=== PATIENT | female | born 1970 | race Caucasian/White ===

== ENCOUNTER → 2016-08-11 | Outpatient (CLI) | payer BC ==
--- NOTE | 2016-08-12 09:51 | Diagnostic Imaging Report ---
Bilateral screening mammogram The current study was also evaluated with a Computer Aided Detection (CAD) system. Indication: Screening. No current complaints stated on the questionnaire. COMPARISON: 07/25/2015. Findings: The breasts are composed of extremely dense parenchyma which may decrease mammographic sensitivity. Scattered benign-appearing calcifications are seen. There are bilateral masses that appear larger compared to the prior study with well circumscribed margins. These are favored to be related to cysts. Benign-appearing calcifications are seen bilaterally. IMPRESSION: Interval enlargement of multiple circumscribed masses in the breasts bilaterally likely related to cysts. Confirmation with bilateral breast ultrasound is recommended. BI-RADS 0. ACR BI-RADS Category 0: Incomplete. (Needs additional imaging evaluation). Result letter will be mailed to the patient. Note: At least 10% of breast cancer is not imaged by mammography. Dictated by: Dictated on workstation # [id number]
== END ==
LOC: RAD 15:14
PROVIDERS: ATTEND Family Medicine
DX: Z12.31 Encounter for screening mammogram for malignant neoplasm of breast (principal)
CPT/HCPCS: 77067

== ENCOUNTER → 2016-09-01 | Outpatient (CLI) | payer BC ==
--- NOTE | 2016-09-01 18:04 | Diagnostic Imaging Report ---
Bilateral breast ultrasound. INDICATION: Bilateral breast masses. FINDINGS: There are multiple bilateral simple and minimally complicated cysts scattered in the breasts on both sides. There is a hypoechoic lesion measuring 1 x 0.7 x 1 cm at 01:30 o'clock position 5 cm from the nipple stable from 2013 exam may relate to a fibroadenoma. There is no suspicious solid mass seen in the four-quadrants or retroareolar region of either breast. At 6 o'clock zone in the right breast 3 cm from the nipple there is a 1 cm cystic lesion with mild internal debris. The largest cyst on the right side is at 9 o'clock zone measuring 3.3 cm. The largest on the left side is at the 1:30 o'clock position measuring 3.1 cm. IMPRESSION: Multiple bilateral simple and minimally complicated cysts. No suspicious solid mass is identified. ACR BI-RADS Category 2: Benign findings. Dictated by: Dictated on workstation # [id number]
== END ==
LOC: RAD 14:01
PROVIDERS: ATTEND Family Medicine
DX: N63 Unspecified lump in breast (principal)

== ENCOUNTER → 2017-08-19 | Outpatient (CLI) | payer BC, OTHER ==
--- NOTE | 2017-08-21 11:49 | Diagnostic Imaging Report ---
EXAMINATION: Digital mammogram INDICATION: Bilateral screening This study was compared to the prior exams of 08/11/2016, 07/10/15 and 03/28/2014. At this time there are no current complaints. The current study was also evaluated with a Computer Aided Detection (CAD) system. IMPRESSION: The fibroglandular tissue in both breasts is extremely dense. This does limit the sensitivity of this exam. As noted on the prior exam of 08/11/2016 there are multiple rounded densities in both breasts. The ultrasound exam performed on 09/01/2016 indicated multiple cysts. On this study the cyst do not appear to have changed adversely. Some of the larger cysts in the right breast noted previously are less conspicuous. The prior exam also noted numerous calcifications in both breasts. These calcifications do not appear to have changed significantly. There is no primary or secondary sign of malignancy noted. IMPRESSION: 1. There is no evidence of malignancy. 2. The patient should have her annual bilateral screening mammogram on schedule in July of 2018. ACR category one ACR BI-RADS Category 1: Negative. Result letter will be mailed to the patient. Note: At least 10% of breast cancer is not imaged by mammography. Dictated on workstation # [id number]
== END ==
LOC: RAD 15:18
PROVIDERS: ATTEND Family Medicine
DX: Z12.31 Encounter for screening mammogram for malignant neoplasm of breast (principal)
CPT/HCPCS: 77067

== ENCOUNTER → 2018-08-19 | Outpatient (CLI) | payer BC, OTHER ==
--- NOTE | 2018-08-20 16:26 | Diagnostic Imaging Report ---
INDICATION: Routine screening. COMPARISON: Prior mammogram from 08/19/2017 and 08/11/2016. EXAMINATION: 2D and 3D bilateral screening mammography was performed with CAD. The current study was also evaluated with a Computer Aided Detection (CAD) system. FINDINGS: Both breasts demonstrate marked parenchymal heterogeneity and increased density, limiting the sensitivity of mammography. Rounded masses throughout both breasts are again noted, consistent with cysts. There are innumerable calcifications throughout both breasts which appear similar to prior exam. No definite spiculated mass is seen. Axillae are unremarkable. IMPRESSION: No mammographic features suspicious for malignancy are identified. Dictated on workstation # [id number]
== END ==
LOC: RAD 15:28
PROVIDERS: ATTEND Family Medicine
DX: Z12.31 Encounter for screening mammogram for malignant neoplasm of breast (principal)
CPT/HCPCS: 77067

== ENCOUNTER → 2020-04-25 | Outpatient (CLI) | payer BC ==
--- NOTE | 2020-04-26 09:32 | Diagnostic Imaging Report ---
INDICATION: Routine screening. Comparison is made with prior mammogram 08/19/2018 and 08/19/2017. 2-D and 3-D bilateral screening mammography was performed with CAD. Both breasts are heterogeneously dense, limiting the sensitivity of mammography. Rounded masses in both breasts are again noted consistent with cysts. Numerous calcifications throughout both breasts persists. No definite malignant appearing microcalcifications are seen. Axillae are unremarkable. IMPRESSION: BI-RADS Category 2 No mammographic features suspicious for malignancy are identified. ACR BI-RADS Category 2: Benign findings. Result letter will be mailed to the patient. Note: At least 10% of breast cancer is not imaged by mammography. Dictated by: Dictated on workstation # [id number]
== END ==
LOC: RAD 15:30
PROVIDERS: ATTEND Family Medicine
DX: Z12.31 Encounter for screening mammogram for malignant neoplasm of breast (principal)
CPT/HCPCS: 77063; 77067

== ENCOUNTER → 2021-04-29 | Outpatient (CLI) | payer BC ==
--- NOTE | 2021-04-30 11:57 | Diagnostic Imaging Report ---
Indication: Routine screening. Comparison is made prior mammogram 04/25/2020 and 08/19/2018. 2-D and 3-D bilateral screening mammography was performed with CAD. Both breasts are heterogeneously dense, limiting the sensitivity of mammography. Numerous rounded masses throughout both breasts are again noted consistent with cysts. There are numerous benign calcifications throughout both breasts which appear to be stable. No new mass or malignant-appearing microcalcifications are seen. Axillae are unremarkable. IMPRESSION: BI-RADS Category 2 No mammographic features suspicious for malignancy are identified. ACR BI-RADS Category 2: Benign findings. Result letter will be mailed to the patient. Note: At least 10% of breast cancer is not imaged by mammography. Dictated by: Dictated on workstation # [id number]
== END ==
LOC: RAD 15:45
PROVIDERS: ATTEND Family Medicine
DX: Z12.31 Encounter for screening mammogram for malignant neoplasm of breast (principal)
CPT/HCPCS: 77063; 77067

== ENCOUNTER → 2022-06-09 | Outpatient (CLI) | payer BC ==
--- NOTE | 2022-06-09 16:28 | Diagnostic Imaging Report ---
Indication: Routine screening. Comparison is made with prior mammograms from 04/29/2021 and 04/25/2020. 2-D and 3-D bilateral screening mammography was performed with CAD. Both breasts are heterogeneously dense, limiting the sensitivity of mammography. Rounded, peripherally calcified masses consistent with cysts are again noted. There are numerous benign calcifications throughout both breasts. No spiculated mass or malignant-appearing microcalcifications are seen. Axillae are unremarkable. IMPRESSION: BI-RADS Category 2 No mammographic features suspicious for malignancy are identified. ACR BI-RADS Category 2: Benign findings. Result letter will be mailed to the patient. Note: At least 10% of breast cancer is not imaged by mammography. Dictated by: Dictated on workstation # [id number]
== END ==
LOC: RAD 15:45
PROVIDERS: ATTEND Family Medicine
DX: Z12.31 Encounter for screening mammogram for malignant neoplasm of breast (principal)
CPT/HCPCS: 77063; 77067